=== PATIENT | male | born 1980 ===

== ENCOUNTER 2017-07-19 12:30 | Emergency (ER) | payer MEDICAID ==
[2017-07-19 12:30] VITALS: BMI 39.3
[2017-07-19 12:36] VITALS: PULSE 78; RESP 20; TEMP 98; O2SAT 98
--- NOTE | 2017-07-19 13:29 | RAD ---
HISTORY: cough COMPARISON: No prior. TECHNIQUE: Chest PA and lateral FINDINGS: LUNGS: No active pulmonary disease. PLEURA: No significant pleural effusion identified. No pneumothorax apparent. CARDIOVASCULAR: Normal. OSSEOUS STRUCTURES: No significant abnormalities. VISUALIZED UPPER ABDOMEN: Normal. OTHER FINDINGS: None. IMPRESSION: No active disease.
--- NOTE | 2017-07-19 13:33 | ED PDOC ---
HPI: CCC, URI, Sore Throat Time Seen by Provider: 07/19/17 12:45 Chief Complaint (Nursing): Cough, Cold, Congestion Chief Complaint (Provider): cough History Per: Patient History/Exam Limitations: no limitations Additional Complaint(s): 37yo M in ED for eval of cough x 1 weeks persistent now causing back pain with cough. states cough is with white sputum. denies CP, SOB, fever chills nausea or vomiting. PERC negative. no palpitations. dizziness or REYES Past Medical History Reviewed: Historical Data, Nursing Documentation, Vital Signs Vital Signs: Last Vital Signs Temp 98.0 F 07/19/17 12:33 Pulse 78 07/19/17 12:33 Resp 20 07/19/17 12:33 BP 148/94 H 07/19/17 12:33 Pulse Ox 98 07/19/17 12:33 - Medical History PMH: Asthma Denies: Chronic Kidney Disease - Family History Family History: States: Unknown Family Hx - Home Medications Home Medications: Ambulatory Orders Medication Instructions Recorded Albuterol Sulfate [Ventolin Hfa] 1 puff IH BID PRN 12/14/14 Albuterol HFA [Ventolin HFA 90 2 puff IH [id number] PRN #1 inh 07/24/15 mcg/actuation (8 g)] Prednisone 40 mg PO DAILY 4 Days tab 07/24/15 Valacyclovir HCl [Valtrex] 1 gm PO TID #30 tablet 01/16/16 Mupirocin 2% Cream [Bactroban 1 applic TOP BID #1 tube 06/16/16 Cream] Albuterol HFA [Ventolin HFA 90 2 puff IH Q6 #200 puff 07/19/17 mcg/actuation (8 g)] Dextromethorphan Polistirex 30 mg PO BID #100 isaiah.er.12h 07/19/17 [Delsym] Methylprednisolone [Medrol Dose 4 mg PO DAILY #21 mg 07/19/17 Pack (21 tabs)] - Allergies Allergies/Adverse Reactions: Allergies Allergy/AdvReac Type Severity Reaction Status Date / Time No Known Allergies Allergy Verified 07/19/17 12:33 Review of Systems ROS Statement: Except As Marked, All Systems Reviewed And Found Negative Constitutional: Negative for: Fever, Chills Respiratory: Positive for: Cough Physical Exam - Reviewed Nursing Documentation Reviewed: Yes Vital Signs Reviewed: Yes - Physical Exam Appears: Positive for: Well, Non-toxic, No Acute Distress Skin: Positive for: Normal Color, Warm, DRY Eye Exam: Positive for: EOMI, Normal appearance, PERRL ENT: Positive for: Normal ENT Inspection Neck: Positive for: Normal, Painless ROM Cardiovascular/Chest: Positive for: Regular Rate, Rhythm Respiratory: Positive for: CNT, Normal Breath Sounds Neurologic/Psych: Positive for: Alert, Oriented - ECG O2 Sat by Pulse Oximetry: 98 - Radiology X-Ray: Interpreted by Ca X-Ray Interpretation: No Acute Disease Medical Decision Making Medical Decision Making: Pt most likely with bronchitis. will /c with delsym and albuterol/medrold dose pack with f.u with pmd Temp Pulse Resp BP Pulse Ox 98.0 F 78 20 148/94 H 98 07/19/17 12:33 07/19/17 12:33 07/19/17 12:33 07/19/17 12:33 07/19/17 13:33 Disposition - Clinical Impression Clinical Impression: Bronchitis - Patient ED Disposition Is Patient to be Admitted: No Counseled Patient/Family Regarding: Studies Performed, Diagnosis, Need For Followup, Rx Given - Disposition Referrals: [facility] [place] [Outside] Disposition: Routine/Home Disposition Time: 13:35 Condition: STABLE Prescriptions: Albuterol HFA [Ventolin HFA 90 mcg/actuation (8 g)] 2 puff IH Q6 #200 puff Dextromethorphan Polistirex [Delsym] 30 mg PO BID #100 isaiah.er.12h Methylprednisolone [Medrol Dose Pack (21 tabs)] 4 mg PO DAILY #21 mg Instructions: Acute Bronchitis (ED)
[2017-07-19 13:48] VITALS: BP 136/84
== END 2017-07-19 13:47 | disposition home or self-care (01) ==
LOC: H.ER 12:30
DX: J40 Bronchitis, not specified as acute or chronic (principal)

== ENCOUNTER 2017-10-31 10:14 | Emergency (ER) | payer MEDICAID ==
[2017-10-31 10:17] VITALS: BMI 35.1
[2017-10-31 10:19] VITALS: BP 140/87; PULSE 91; RESP 16; TEMP 98.3; O2SAT 97
--- NOTE | 2017-10-31 11:20 | ED PDOC ---
HPI: General Adult Time Seen by Provider: 10/31/17 10:48 Chief Complaint (Nursing): Eye Problem History Per: Patient Additional Complaint(s): Cough productive of yellow sputum x 3 days. States 3-4 days ago he developed progressively worsening L eye redness, tearing, and discharge. Of note, pt. states he has been taking Robitussin without relief. Denies SOB, chest pain, wheezing, fever, hemoptysis, sick contacts, recent travel, contact lens use, hx of DM, visual changes, eye trauma, eye pain. Past Medical History Reviewed: Historical Data, Nursing Documentation, Vital Signs Vital Signs: Last Vital Signs Temp 98.3 F 10/31/17 10:18 Pulse 91 H 10/31/17 10:18 Resp 16 10/31/17 10:18 BP 140/87 10/31/17 10:18 Pulse Ox 97 10/31/17 11:23 - Medical History PMH: Asthma Denies: Chronic Kidney Disease - Surgical History Surgical History: No Surg Hx - Family History Family History: States: No Known Family Hx - Home Medications Home Medications: Ambulatory Orders Medication Instructions Recorded Albuterol Sulfate [Ventolin Hfa] 1 puff IH BID PRN 12/14/14 Albuterol HFA [Ventolin HFA 90 2 puff IH [id number] PRN #1 inh 07/24/15 mcg/actuation (8 g)] Prednisone 40 mg PO DAILY 4 Days tab 07/24/15 Valacyclovir HCl [Valtrex] 1 gm PO TID #30 tablet 01/16/16 Mupirocin 2% Cream [Bactroban 1 applic TOP BID #1 tube 06/16/16 Cream] Albuterol HFA [Ventolin HFA 90 2 puff IH Q6 #200 puff 07/19/17 mcg/actuation (8 g)] Dextromethorphan Polistirex 30 mg PO BID #100 [email or web address].12h 07/19/17 [Delsym] Methylprednisolone [Medrol Dose 4 mg PO DAILY #21 mg 07/19/17 Pack (21 tabs)] Erythromycin 0.5% [Erythromycin 1 appl LEFTEYE QID #1 tube 10/31/17 0.5% Oint] Promethazine DM [Phenergan DM 5 - 10 ml PO Q8 PRN #120 ml 10/31/17 Syrup] - Allergies Allergies/Adverse Reactions: Allergies Allergy/AdvReac Type Severity Reaction Status Date / Time No Known Allergies Allergy Verified 07/19/17 12:33 Review of Systems ROS Statement: Except As Marked, All Systems Reviewed And Found Negative Respiratory: Positive for: Cough Physical Exam - Physical Exam Appears: Positive for: Well, Non-toxic, No Acute Distress Skin: Positive for: Normal Color, Warm. Negative for: Rash Eye Exam: Positive for: EOMI, PERRL, Conjunctival injection (L eye; R eye without conjunctival injection), Other (lids and lashes normal; L eye with moderate tearing; no light sensitivity b/l). Negative for: Nystagmus, Periorbital swelling, Periorbital tenderness ENT: Positive for: Normal ENT Inspection Neck: Positive for: Normal, Painless ROM Cardiovascular/Chest: Positive for: Regular Rate, Rhythm Respiratory: Positive for: Normal Breath Sounds. Negative for: Wheezing, Respiratory Distress Neurologic/Psych: Positive for: Alert, Oriented. Negative for: Aphasia, Facial Droop - ECG O2 Sat by Pulse Oximetry: 97 - Radiology X-Ray: Interpreted by Me (CXR) X-Ray Interpretation: No Acute Disease Disposition - Clinical Impression Clinical Impression: Conjunctivitis, Acute bronchitis - Patient ED Disposition Is Patient to be Admitted: No - Disposition Referrals: [facility] [Outside] Disposition: Routine/Home Disposition Time: 12:25 Condition: STABLE Prescriptions: Erythromycin 0.5% [Erythromycin 0.5% Oint] 1 appl LEFTEYE QID #1 tube Promethazine DM [Phenergan DM Syrup] 5 - 10 ml PO Q8 PRN #120 ml PRN Reason: Cough Instructions: Acute Bronchitis, Adult (DC), Conjunctivitis ([place]) (DC) Forms: [employer] (Swazi) Print Language: NIUEAN
--- NOTE | 2017-10-31 12:03 | RAD ---
HISTORY: cough COMPARISON: Chest radiograph dated 07/19/2017. TECHNIQUE: Chest PA and lateral FINDINGS: LUNGS: No active pulmonary disease. PLEURA: No significant pleural effusion identified. No pneumothorax apparent. CARDIOVASCULAR: Normal. OSSEOUS STRUCTURES: No significant abnormalities. VISUALIZED UPPER ABDOMEN: Normal. OTHER FINDINGS: None. IMPRESSION: No active disease.
== END 2017-10-31 12:32 | disposition home or self-care (01) ==
LOC: H.ER 10:14
DX: H10.9 Unspecified conjunctivitis (principal); J20.9 Acute bronchitis, unspecified; J45.909 Unspecified asthma, uncomplicated